=== PATIENT | male | born 1970 | race Hispanic/Latino ===

== ENCOUNTER 2016-11-01 16:41 | Emergency (ER) | payer SELFPAY ==
[~2016-11-01] VITALS: Ht 167.6 cm; Wt 77.1 kg
[~2016-11-01 16:41] MED LIST: SILVADENE CREAM50 GM TOP
[2016-11-01 16:44] VITALS: BP 141/96
--- NOTE | 2016-11-01 16:53 | Emergency Room Report ---
History of Present Illness General Chief Complaint: Chest Pain Source: Patient Present Illness HPI Patient is a 46-year-old male brought in by ambulance after chest pain acute onset. 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 Patient had a substernal chest pressure which did not radiate. Patient states he's had prior heart attack approximately 10 years ago. He reports having history of hypertension. Allergies: Coded Allergies: No Known Allergies (Unverified , 06/30/14) Patient History Reviewed Nursing Documentation: PMH: Agreed, PSxH: Agreed Nursing Documentation-PMH Hx Cardiac Problems: Yes Hx Hypertension: Yes Review of Systems All Other Systems: negative except mentioned in HPI Physical Exam Vital Signs Date Time Temp Pulse Resp B/P Pulse Ox O2 Delivery O2 Flow Rate FiO2 11/01/16 16:36 99.9 96 30 153/101 97 Room Air Sp02 EP Interpretation: reviewed, normal General Appearance: normal inspection, well appearing, no apparent distress, alert, GCS 15 Head: atraumatic ENT: normal ENT inspection, hearing grossly normal, normal voice Neck: normal inspection, full range of motion, supple, no bony tend Respiratory: normal inspection, lungs clear, normal breath sounds, no respiratory distress, no retraction, no wheezing Cardiovascular #1: regular rate, rhythm, no edema Gastrointestinal: normal inspection, normal bowel sounds, non tender, soft, no guarding, no hernia Genitourinary: no CVA tenderness Musculoskeletal: normal inspection, back normal, normal range of motion Neurologic: normal inspection, alert, oriented x3, responsive, 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 Because of complexity of patient's case laboratory testing and imaging studies were ordered. EKG interpreted by me showed a hyperacute T waves in the septal leads. The patient was noted to have a heart rate of 94. A repeat EKG showed dynamic ST changes consistent with acute myocardial infarction. Patient was given aspirin by EMS. Patient was given IV heparin in emergency department.The patient was noted to have some improvement in chest pain. The patient subsequently had a given IV morphine 2 mg. Patient was noted to have the continued chest pain.The laboratory studies are currently pending. The patient's information was sent a [facility] for higher level of care Dr. Perdue agreed except patient for higher level care EKG Diagnostic Results Rate: normal Rhythm: NSR ST Segments: other - hyperacute t waves septal leads. Rhythm Strip Diag. Results EP Interpretation: yes Chest X-Ray Diagnostic Results EP Interpretation: Yes Findings: no consolidation, no effusion, no pneumothorax, no acute cardiopulmonary disease, other Number of Views: 1 Last Vital Signs Date Time Temp Pulse Resp B/P Pulse Ox O2 Delivery O2 Flow Rate FiO2 11/01/16 16:36 99.9 96 30 153/101 97 Room Air Status: improved Disposition: [facility] Condition: Critical Scott Liang Nov 01, 2016 16:53
[2016-11-01] MEDS ORDERED: Morphine Sulfate 2mg/ml Inj IVP ONE (17:00)
[2016-11-01] MEDS ORDERED: Heparin 5000 units/ml inj IV ONE (17:00)
[2016-11-01 17:05] LABS: BASOPHILS % (AUTO) 0.9 % (0.0-2.0); EOSINOPHILS % (AUTO) 0.5 % (0.0-3.0); MEAN CORPUSCULAR HEMOGLOBIN 29.4 PG (27.0-31.0); MEAN CORPUSCULAR HGB CONC 33.4 G/DL (32.0-36.0); MEAN CORPUSCULAR VOLUME 88 FL (80-99); MEAN PLATELET VOLUME 7.5 FL (6.5-10.1); NEUTROPHILS % (AUTO) 63.7 % (45.0-75.0); PLATELET COUNT 218 K/UL (150-450); RED BLOOD COUNT 5.03 M/UL (4.70-6.10); WHITE BLOOD COUNT 11.4 K/UL (4.8-10.8)
[2016-11-01] MEDS ORDERED: Nitroglycerin Subl 0.4mg tab (Bottle Of 25) SL ONE ×3 (17:08→17:15)
[2016-11-01 17:12] VITALS: BP 141/96
[2016-11-01 17:23] LABS: ALANINE AMINOTRANSFERASE 27 U/L (3-41); ALBUMIN/GLOBULIN RATIO 1.6 (1.0-2.7); ANION GAP 22 (5-15); ASPARTATE AMINO TRANSFERASE 23 U/L (5-40); CALCIUM 8.9 mg/dL (8.6-10.2); CARBON DIOXIDE 19 mEQ/L (20-30); CHLORIDE 96 mEQ/L (98-107); CREATININE 0.9 mg/dL (0.7-1.2); GLOMERULAR FILTRATION RATE > 60 mL/min (>60); HEMOLYSIS 15; POTASSIUM 3.5 mEQ/L (3.4-4.9); SODIUM 137 mEQ/L (135-145); TOTAL PROTEIN 6.7 g/dL (6.6-8.7); TROPONIN I < 0.30 ng/mL (<=0.30)
[2016-11-01 17:33] LABS: CKMB 3.1 ng/mL (< 6.7)
--- NOTE | 2016-11-02 09:29 | Diagnostic Imaging Report ---
Clinical history: Shortness of breath Technique: Portable AP chest radiograph was obtained. Comparison: None Findings: Lung volumes are low with probable scattered atelectasis and vascular crowding. There is no pneumonia or pulmonary edema. There is no pleural effusion or pneumothorax. The cardiac and mediastinal silhouettes are normal in appearance. No definite evidence of cardiomegaly, given AP portable technique. The bony thorax is unremarkable. Impression: Low lung volumes. No evidence of pneumonia.
--- NOTE | 2016-11-04 00:06 | Cardiology Report ---
APPROVED REPORT EKG Measurement Heart [id number] Normal sinus rhythm Cannot rule out Anterior infarct, age undetermined T wave abnormality, consider lateral ischemia Abnormal ECG
== END 2016-11-01 17:30 | disposition short-term general hospital (02) ==
LOC: EDBD 16:41 → EMR 17:20
DX: I21.3 ST elevation (STEMI) myocardial infarction of unspecified site (principal); I10 Essential (primary) hypertension
CPT/HCPCS: 36415; 71010; 80053; 82550; 82553; 83880; 84484; 85025; 93005; 96374; 96375; 99285; J1644; J2270